=== PATIENT | male | born 1950 | race American Indian/Alaskan Native ===

== ENCOUNTER 2017-12-08 13:42 | Emergency (ER) | payer MEDICARE ==
[2017-12-08 14:07] VITALS: TEMP 98.5
--- NOTE | 2017-12-08 14:38 | C.PDOC ---
History Of Present Illness 67-year-old male, PMHx includes EtOH abuse, presents to the emergency department with complaints of fall. Patient states he was drinking today. States he fell on his face and injured his nose. He denies any other complaints at this time. Time Seen by Provider: 12/08/17 14:35 Chief Complaint (Nursing): Substance Abuse History Per: Patient History/Exam Limitations: no limitations Current Symptoms Are (Timing): Still Present Past Medical History Reviewed: Historical Data, Nursing Documentation, Vital Signs Vital Signs: Last Vital Signs Temp 98.5 F 12/08/17 14:04 Pulse 63 12/08/17 14:04 Resp 18 12/08/17 14:04 BP 138/83 12/08/17 14:04 Pulse Ox 98 12/08/17 16:36 Surgical History: Cholecystectomy Family History: States: No Known Family Hx - Social History Hx Tobacco Use: No Hx Alcohol Use: Yes Hx Substance Use: No - Immunization History Hx Tetanus Toxoid Vaccination: No Hx Influenza Vaccination: No Hx Pneumococcal Vaccination: No Review Of Systems Constitutional: Negative for: Fever ENT: Positive for: Nose Pain Cardiovascular: Negative for: Chest Pain Gastrointestinal: Negative for: Vomiting Musculoskeletal: Negative for: Neck Pain Neurological: Negative for: Weakness, Numbness, Headache, Dizziness Physical Exam - Physical Exam Appears: Non-toxic, No Acute Distress, Other (intoxicated) Skin: Normal Color, Warm, Dry, No Rash Head: Atraumatic Eye(s): bilateral: Normal Inspection Nose: Other (swelling to nose, (+)ecchymosis to bridge) Oral Mucosa: Moist Lips: Normal Appearing Neck: Normal ROM Cardiovascular: Rhythm Regular, No Murmur Respiratory: Normal Breath Sounds, No Accessory Muscle Use Back: Normal Inspection Extremity: Normal ROM, No Deformity Neurological/Psych: Oriented x3, Normal Speech ED Course And Treatment O2 Sat by Pulse Oximetry: 98 Pulse Ox Interpretation: Normal (RA) Medical Decision Making Medical Decision Making: Plan: * CT Head * CT Face * Reassess and Disposition Disposition Counseled Patient/Family Regarding: Studies Performed, Diagnosis - Disposition Disposition: HOME/ ROUTINE Disposition Time: 16:35 Condition: IMPROVED Instructions: Contusion (DC) Forms: General Discharge Instructions - POA Present On Arrival: None - Clinical Impression Clinical Impression: Contusion of face - Scribe Statement The provider has reviewed the documentation as recorded by the Scribe (Katelyn Glover) Provider Attestation: All medical record entries made by the Miguelitoibvickie were at my direction and personally dictated by me. I have reviewed the chart and agree that the record accurately reflects my personal performance of the history, physical exam, medical decision making, and the department course for this patient. I have also personally directed, reviewed, and agree with the discharge instructions and disposition.
--- NOTE | 2017-12-08 15:54 | CT ---
Date of service: 12/08/2017 PROCEDURE: CT HEAD WITHOUT CONTRAST. HISTORY: fall, intox COMPARISON: None available. TECHNIQUE: Axial computed tomography images were obtained through the head/brain without intravenous contrast. Radiation dose: Total exam DLP = 1070.92 mGy-cm. This CT exam was performed using one or more of the following dose reduction techniques: Automated exposure control, adjustment of the mA and/or kV according to patient size, and/or use of iterative reconstruction technique. FINDINGS: HEMORRHAGE: No intracranial hemorrhage. BRAIN: No mass effect or edema. Intracranial atherosclerosis. The harvey-white matter differentiation appears intact. Please note that MRI with diffusion imaging is more sensitive in the detection of acute ischemic event. VENTRICLES: No hydrocephalus. CALVARIUM: Unremarkable. PARANASAL SINUSES: Unremarkable as visualized. No significant inflammatory changes. MASTOID AIR CELLS: Unremarkable as visualized. No inflammatory changes. OTHER FINDINGS: None. IMPRESSION: No acute intracranial pathology identified.
--- NOTE | 2017-12-08 16:18 | CT ---
Date of service: 12/08/17 CT maxillofacial bones without IV contrast Indication: Fall, intoxication Comparison: None available Technique: Axial computed tomography images were obtained of the maxillofacial bones without the use of intravenous contrast. Coronal and sagittal reformatted images were generated and reviewed. This CT exam was performed using 1 or more of the following dose reduction techniques: Automated exposure control, adjustment of the MAA and/or kV according to patient size, and/or use of iterative reconstruction technique. Radiation dose: Total exam DLP = 812.43 mGy-cm. Findings: Postsurgical changes with metallic plate and screw fixation of the left mandible. Evidence of remote deformity involving the left orbital wall. The facial bones appear intact, without evidence of mass, stranding of the orbital fat, or acute fracture. The orbits appear otherwise unremarkable. The temporomandibular joints are located. The paranasal sinuses appear clear. The visualized brain appears unremarkable. Impression: No acute findings identified. See above.
[2017-12-08 16:42] VITALS: BP 125/76; PULSE 58; RESP 19
[2017-12-08 16:43] VITALS: O2SAT 98
== END 2017-12-08 16:58 | disposition home or self-care (01) ==
LOC: C.ER 13:42
DX: S00.83XA Contusion of other part of head, initial encounter (principal); W19.XXXA Unspecified fall, initial encounter